=== PATIENT | female | born 1970 | race African-American/Black ===

== ENCOUNTER 2018-01-09 21:03 | Emergency (ER) | payer SELFPAY ==
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
[2018-01-09] MEDS ORDERED: Ibuprofen 200 MG TAB ONE (22:03)
== END 2018-01-09 22:41 | disposition home or self-care (01) ==
LOC: ERS 21:03
DX: S20.02XA Contusion of left breast, initial encounter (principal); S20.212A Contusion of left front wall of thorax, initial encounter; S60.222A Contusion of left hand, initial encounter; S60.221A Contusion of right hand, initial encounter; F32.9 Major depressive disorder, single episode, unspecified; Y04.8XXA Assault by other bodily force, initial encounter; Y92.009 Unspecified place in unspecified non-institutional (private) residence as the place of occurrence of the external cause
CPT/HCPCS: 70360; 71046

== ENCOUNTER 2018-05-08 10:21 | Outpatient (CLI) | payer OTHER ==
--- NOTE | 2018-05-08 14:18 | ULT ---
BILATERAL BREAST ULTRASOUND: History: Breast masses. Comparison: Mammogram previous day. FINDINGS: There are bilateral breasts cysts. No suspicious mass. IMPRESSION: BIRADS 2 - benign findings. Continued screening is recommended. POS: [facility]
== END 2018-05-08 10:22 | disposition home or self-care (01) ==
LOC: BICMAMMO 10:21
PROVIDERS: ATTEND Family Medicine
DX: N64.4 Mastodynia (principal)
CPT/HCPCS: 77066; G0279

== ENCOUNTER 2019-07-21 06:06 | Emergency (ER) | payer SELFPAY ==
[2019-07-21 07:25] LABS: #Basophils 0.1 thou/uL (0.0-0.2); #Eosinphils 0.2 thou/uL (0.0-0.7); #Lymphocytes 2.5 thou/uL (1.20-3.40); #Monocytes 0.3 thou/uL (0.11-0.59); #Neutrophils 2.2 thou/uL (1.40-6.50); %Eosinophils 3.5 % (0.0-10.0); %Lymphocytes 48.5 % (21.0-51.0); %Monocytes 5.8 % (0.0-10.0); %Neutrophils 41.3 % (42.0-75.0); Hemoglobin 13.4 g/dL (12.0-16.0); Mean Corpuscular Hemoglobin 28.4 pg (27.0-31.0); Mean Corpuscular Volume 86.1 fL (78.0-98.0); Mean Platelet Volume 6.3 fL (7.4-10.4); Platelet Count 329 thou/uL (130-400); RBC Distribution Width 11.8 % (11.5-14.5); Red Blood Cell (RBC) Count 4.72 mill/uL (4.20-5.40); White Blood Cell (WBC) Count 5.2 thou/uL (4.8-10.8)
--- NOTE | 2019-07-21 07:45 | RAD ---
XR Chest 1 View Portable HISTORY: Chest pain COMPARISON: 01/09/2018 FINDINGS: The heart size is normal. The lungs are well expanded without focal areas of consolidation, pneumothorax or pleural effusions. IMPRESSION: No radiographic evidence of acute cardiopulmonary process.
[2019-07-21 07:48] LABS: ALT (SGPT) 15 U/L (8-55); AST (SGOT) 18 U/L (5-34); Albumin 4.1 g/dL (3.5-5.0); Alkaline Phosphatase 74 U/L (40-110); Anion Gap 12 mmol/L (10-20); BUN (Urea Nitrogen) 14 mg/dL (9.8-20.1); Bilirubin, Total 0.4 mg/dL (0.2-1.2); CK (CPK) 95 U/L (29-168); Calc. Creatinine Clearance 0 mL/min (70-130); Calcium 9.3 mg/dL (7.8-10.44); Carbon Dioxide 28 mmol/L (22-29); Chloride 102 mmol/L (98-107); Estimated GFR-MDRD 90; Globulin 3.4 g/dL (2.4-3.5); Glucose 99 mg/dL (70-105); Potassium 3.7 mmol/L (3.5-5.1); Protein, Total 7.5 g/dL (6.0-8.3); Sodium 138 mmol/L (136-145)
--- NOTE | 2019-07-24 15:03 | EKG ---
Test Reason : Blood Pressure : / mmHG Vent. Rate : 060 BPM Atrial Rate : 060 BPM P-R Int : 214 ms QRS Dur : 092 ms QT Int : 376 ms P-R-T Axes : 021 -34 -19 degrees QTc Int : 376 ms Sinus rhythm with 1st degree A-V block Left axis deviation Nonspecific T wave abnormality Abnormal ECG Confirmed by ITA FRIEND ([id number]), avid editor FARRAH GRACE ([id number]) on 07/24/2019 3:03:14 PM Referred By: Confirmed By:ITA FRIEND
== END 2019-07-21 08:20 | disposition home or self-care (01) ==
LOC: ERS 06:06
DX: I10 Essential (primary) hypertension (principal); R00.2 Palpitations; F32.9 Major depressive disorder, single episode, unspecified
CPT/HCPCS: 36415; 71045; 80053; 82550; 84484; 85025; 85379; 93005

== ENCOUNTER 2020-06-19 15:38 | Emergency (ER) | payer SELFPAY | END 2020-06-19 17:23 | disposition left against medical advice (07) | LOC: ERS 15:38 | DX: Z53.21 Procedure and treatment not carried out due to patient leaving prior to being seen by health care provider (principal) ==

== ENCOUNTER 2021-04-26 14:50 | Emergency (ER) | payer SELFPAY ==
[2021-04-26] MEDS ORDERED: Proparacaine 0.5% Opth 15 ML BOT ONE (18:10)
[2021-04-26] MEDS ORDERED: Fluorescein Opthalmic Strip ONE (18:10)
== END 2021-04-26 20:09 | disposition home or self-care (01) ==
LOC: ERS 14:50
DX: R51.9 Headache, unspecified (principal); H10.9 Unspecified conjunctivitis; E78.5 Hyperlipidemia, unspecified; Y04.2XXA Assault by strike against or bumped into by another person, initial encounter
CPT/HCPCS: 70450

== ENCOUNTER 2022-01-03 11:22 | Emergency (ER) | payer SELFPAY ==
[2022-01-03] MEDS ORDERED: Proparacaine 0.5% Opth 15 ML BOT ONE (13:32)
[2022-01-03] MEDS ORDERED: Fluorescein Opthalmic Strip ONE (13:32)
[2022-01-03 14:43] LABS: #Eosinphils 0.1 thou/uL (0.0-0.7); #Lymphocytes 2.3 thou/uL (1.20-3.40); #Monocytes 0.3 thou/uL (0.11-0.59); #Neutrophils 2.6 thou/uL (1.40-6.50); %Basophils 0.4 % (0.0-1.0); %Eosinophils 1.5 % (0.0-10.0); %Lymphocytes 43.9 % (21.0-51.0); %Monocytes 4.9 % (0.0-10.0); %Neutrophils 49.3 % (42.0-75.0); Hemoglobin 12.5 g/dL (12.0-16.0); Mean Corpuscular HGB CONC 32.3 g/dL (32.0-36.0); Mean Corpuscular Hemoglobin 28.5 pg (27.0-31.0); Mean Corpuscular Volume 88.3 fL (78.0-98.0); Mean Platelet Volume 6.5 fL (7.4-10.4); Platelet Count 300 thou/uL (130-400); RBC Distribution Width 11.8 % (11.5-14.5); Red Blood Cell (RBC) Count 4.38 mill/uL (4.20-5.40); White Blood Cell (WBC) Count 5.3 thou/uL (4.8-10.8)
[2022-01-03 15:03] LABS: ALT (SGPT) 9 U/L (8-55); AST (SGOT) 16 U/L (5-34); Alkaline Phosphatase 66 U/L (40-110); Anion Gap 8 mmol/L (10-20); BUN (Urea Nitrogen) 12 mg/dL (9.8-20.1); Bilirubin, Total 0.6 mg/dL (0.2-1.2); Calc. Creatinine Clearance 0 mL/min (70-130); Calcium 9.4 mg/dL (7.8-10.44); Carbon Dioxide 29 mmol/L (22-29); Chloride 104 mmol/L (98-107); Estimated GFR 89; Globulin 3.2 g/dL (2.4-3.5); Glucose 82 mg/dL (70-105); Potassium 3.9 mmol/L (3.5-5.1); Protein, Total 7.2 g/dL (6.0-8.3); Sodium 137 mmol/L (136-145)
== END 2022-01-03 16:01 | disposition home or self-care (01) ==
LOC: EEVIPCON 11:22 → ERS 11:22
DX: R07.9 Chest pain, unspecified (principal); M25.552 Pain in left hip; M79.652 Pain in left thigh; H57.12 Ocular pain, left eye; Y04.0XXA Assault by unarmed brawl or fight, initial encounter
CPT/HCPCS: 36415; 70450; 70486; 71045; 80053; 84484; 85025; 93005